=== PATIENT | female | born 1990 | race Caucasian/White ===

== ENCOUNTER 2018-02-21 20:40 | Emergency (ER) | payer MEDICAID ==
[2018-02-21 20:45] VITALS: BP 125/86
--- NOTE | 2018-02-21 20:55 | ER Report ---
History and Physical Time Seen By MD: 20:55 Hx. of Stated Complaint: SLIPPED ON ICE. FELL FORWARD, LANDED ON LEFT WRIST. NO OTHER COMPLAINTS/INJURIES HPI/ROS CHIEF COMPLAINT: wrist injury HISTORY OF PRESENT ILLNESS: This is a 28 year old female. She slipped on the ice and fell onto outstretched left hand. Swelling and pain, severe, worse with pressure or movement. Normal sensation. Allergies: Coded Allergies: amoxicillin (Verified Allergy, Severe, SHORTNESS OF BREATH, 02/21/18) Home Meds Active Scripts Hydrocodone Bit/Acetaminophen (HYDROCODON-ACETAMINOPHEN 5-325) 1 Each Tablet, 1 EACH PO Q4H PRN for PAIN, #12 TAB 0 Refills Prov:LJ GRAVES MD 02/21/18 Reviewed Nurses Notes: Yes Hx Substance Use Disorder: No Hx Alcohol Use: No Constitutional Vital Sign - Last 24 Hours 02/21/18 20:45 Temp 98.0 Pulse 72 Resp 24 B/P (MAP) 125/86 Pulse Ox 95 O2 Delivery Room Air Physical Exam General: Alert, no acute distress. Musculoskeletal: swelling. Pain with palpation over wrist. No pain at elbow. No pain in hand. Can move fingers, but causes pain in wrist. Skin: No laceration or breakdown. Cardiovascular: Normal capillary refill and radial pulses. Neuro: normal sensation Medical Decision Making EKG/Imaging Imaging Examination: WRIST LEFT MIN 3 VIEW Comparison: None. History: Fall on outstretched hand. Left wrist pain and swelling. Findings: Left radius distal diametaphysis significantly comminuted and displaced fracture. Best seen on the lateral projection there is marked disruption of the radial articular surface with impaction of the proximal carpal row into the fracture. Additionally, a minimally displaced fracture through the base of the ulnar styloid is present. Intercarpal alignment is maintained. Diffuse soft tissue swelling. IMPRESSION: 1. Left radius distal diametaphysis significantly comminuted and displaced intra-articular fracture. 2. Left ulnar styloid minimally displaced fracture. Report Dictated By: Yordy Edwards MD at 02/21/2018 9:10 PM S/p reduction films do not show much change, awaiting radiology evaluation. ED Course/Re-evaluation ED Course Patient had x-rays showing the fracture. Hematoma block and Lortab provided and reduction attempted. Sugartong splint applied. Not much improvement in positioning of fracture. She will call orthopedic surgery on Wednesday. Re-evaluation Procedure: Hematoma block left distal radius fracture A hematoma block was performed to help with pain with reduction of Colles' fracture. The block was performed with lidocaine without epinephrine and Сергей gabriella without epinephrine. The patient experienced almost complete pain relief. The procedure was performed by myself. Procedure: Sugar tong left forearm half cast placement. A half-cast/splint as noted above was applied. After application of the half- cast, I returned and re-examined the patient. The half-cast was adequately immobilizing the joint and distally the patient's circulation and sensation was intact. This was applied by myself. Decision to Disposition Date: Feb 21, 2018 Decision to Disposition Time: 22:12 Depart Departure Latest Vital Signs Vital Signs Date Time Temp Pulse Resp B/P (MAP) Pulse Ox O2 Delivery O2 Flow Rate FiO2 02/21/18 20:45 98.0 72 24 125/86 95 Room Air Impression: Primary Impression: Colles' fracture of left radius Additional Impression: Fracture of ulnar styloid Condition: Improved Disposition: HOME OR SELF-CARE New Scripts Hydrocodone Bit/Acetaminophen (HYDROCODON-ACETAMINOPHEN 5-325) 1 Each Tablet 1 EACH PO Q4H PRN for PAIN, #12 TAB 0 Refills Prov: LJ GRAVES MD 02/21/18 Patient Instructions: Wrist Fracture in Adults (ED) Additional Instructions: Call your orthopedic surgeon in [place] this Wednesday to arrange a follow-up evaluation for your wrist fracture. Ibuprofen 200mg over the counter tablets, take 4 tablets three times a day with food. Lortab 5/325, one every 4 hours as needed for pain. Apply ice 20 minutes every 1-2 hours while awake. Rest the injured area, keep it elevated while at rest. Keep the splint on until you see orthopedic surgery. Problem Qualifiers Primary Impression: Colles' fracture of left radius Encounter type: initial encounter Fracture type: closed Qualified Codes: S52.532A - Colles' fracture of left radius, initial encounter for closed fracture Additional Impression: Fracture of ulnar styloid Encounter type: initial encounter Fracture type: closed Fracture alignment: nondisplaced Laterality: left Qualified Codes: S52.615A - Nondisplaced fracture of left ulna styloid process, initial encounter for closed fracture LJ GRAVES MD Feb 21, 2018 20:55
--- NOTE | 2018-02-21 21:16 | RADIOLOGY IMAGING REPORT ---
FACILITY: [facility] PATIENT NAME: Rivka Milan : 1990 MR: [id number] V: [id number] EXAM DATE: ORDERING PHYSICIAN: LJ GRAVES TECHNOLOGIST: Location: [facility] [place] Patient: Rivka Milan : 1990 Visit/Account:[id number] Date of Sevice: 02/21/2018 Examination: WRIST LEFT MIN 3 VIEW Comparison: None. History: Fall on outstretched hand. Left wrist pain and swelling. Findings: Left radius distal diametaphysis significantly comminuted and displaced fracture. Best see n on the lateral projection there is marked disruption of the radial articular surface with impaction of the proximal carpal row into the fracture. Additionally, a minimally displaced fracture through the base of the ulnar styloid is present. Intercarpal alignment is maintained. Diffuse soft tissue swelling. IMPRESSION: 1. Left radius distal diametaphysis significantly comminuted and displaced intra-articular fracture. 2. Left ulnar styloid minimally displaced fracture. Report Dictated By: Yordy Edwards MD at 02/21/2018 9:10 PM Report E-Signed By: Yordy Edwards MD at 02/21/2018 9:12 PM WSN:[email or web address]
[2018-02-21] MEDS ORDERED: APAP/HYDROCODONE 325/5 TAB PO ONE (21:30)
[2018-02-21] MEDS ORDERED: LOR5/325 PO (22:14)
[2018-02-21] MEDS ORDERED: ACET/HYDROC 5/325MG TH ER ONLY 2 TAB/BOTTLE PO ONE (22:15)
--- NOTE | 2018-02-21 22:29 | RADIOLOGY IMAGING REPORT ---
[place] [facility] [place]IENT NAME: Rivka Milan : 1990 MR: [id number] V: [id number] EXAM DATE: ORDERING PHYSICIAN: LJ GRAVES TECHNOLOGIST: Location: [facility] Patient: Rivka Milan : 1990 Visit/Account:[id number] Date of Sevice: 02/21/2018 EXAMINATION: Left wrist 3 views HISTORY: Post reduction COMPARISON: Prior study of earlier today. FINDINGS: Comminuted intra-articular fracture of the distal left radius. There is improved anatomic alignment f ollowing closed reduction with some mild residual impaction of fracture fragments. Nondisplaced fracture of the ulnar styloid. No other new osseous findings about the left wrist. Surrounding soft tissue swelling with new overlying splint material. IMPRESSION: Comminuted intra-articular fracture of the distal left radius, with improved anatomic al ignment following closed reduction. Report Dictated By: Matt Curry MD at 02/21/2018 10:22 PM Report E-Signed By: Matt Curry MD at 02/21/2018 10:25 PM WSN:[id number]
== END 2018-02-21 22:28 | disposition home or self-care (01) ==
LOC: ER 20:56
DX: S52.532A Colles' fracture of left radius, initial encounter for closed fracture (principal); S52.615A Nondisplaced fracture of left ulna styloid process, initial encounter for closed fracture; W00.0XXA Fall on same level due to ice and snow, initial encounter
CPT/HCPCS: 25605; 73110; 99284; A4565

== ENCOUNTER 2018-03-01 00:17 | Day surgery (SDC) | payer MEDICAID ==
[~2018-03-01] VITALS: Ht 162.6 cm; Wt 105.7 kg
[~2018-03-01 00:17] MED LIST: LOR5/325 PO
[2018-03-01] MEDS ORDERED: CLINDAMYCIN(*) 900 MG/NS 50 ML 50 ML IVPB ONE (07:00)
[2018-03-01] MEDS ORDERED: LIDOCAINE/SOD BICARB 8.4% SYR ID ONE (07:00)
[2018-03-01] MEDS ORDERED: CELECOXIB 200 MG CAP PO ONE (07:00)
[2018-03-01] MEDS ORDERED: MIDAZOLAM 2 MG/2 ML VIAL IVP PRN (07:00)
[2018-03-01] MEDS ORDERED: FAMOTIDINE 20 MG TAB PO ONE (07:00)
[2018-03-01] MEDS ORDERED: NORMOSOL R SOLN(*) 1000 ML BAG 1,000 ML IV PRN (07:00)
[2018-03-01] MEDS ORDERED: fentaNYL CITR 250 MCG/5 ML AMP ONE (07:47)
[2018-03-01] MEDS ORDERED: DEXAMETHASONE SOD PHOS 10MG/ML ONE (07:48)
[2018-03-01] MEDS ORDERED: LIDOCAINE MPF 1% 5 ML VIAL ONE (07:48)
[2018-03-01] MEDS ORDERED: PROPOFOL EMUL(*) 10MG/ML 20 ML 20 ML ONE (07:48)
[2018-03-01] MEDS ORDERED: ONDANSETRON 4 MG/2 ML VIAL ONE (07:48)
[2018-03-01] MEDS ORDERED: KETAMINE HCL 200 MG/20 ML MDV ONE (07:50)
[2018-03-01 08:37] VITALS: BP 105/60
[2018-03-01] MEDS ORDERED: ROPIVACAINE 0.2% 20 ML VIAL ONE (09:10)
[2018-03-01] MEDS ORDERED: LIDOCAINE 2% JELLY 5 ML TUBE ONE (09:28)
[2018-03-01] MEDS ORDERED: HALOPERIDOL LACT 5 MG/ML VIAL IM ONE (10:00)
[2018-03-01] MEDS ORDERED: KETOROLAC 30 MG/ML VIAL ONE (10:52)
--- NOTE | 2018-03-01 11:52 | OPERATIVE REPORT 1 ---
EVENT DATE: March 01, 2018 SURGEON: Fuad Morton MD ANESTHESIOLOGIST: Heraclio Renee MD ANESTHESIA: General LMA. TIN CONTAINER STRAIGHTENER: Praveen Carlos PA-C PREOPERATIVE DIAGNOSIS Left comminuted intra-articular greater than three part distal radius fracture. POSTOPERATIVE DIAGNOSIS Left comminuted intra-articular greater than three part distal radius fracture. PROCEDURE PERFORMED Open reduction and internal fixation of a left distal radius fracture, which is intra-articular greater than three parts and down into the shaft. FINDINGS The patient has displaced distal radius fracture. It was amenable for fixation with a volar plate with a longer volar plate out of the skeletal dynamic set. ESTIMATED BLOOD LOSS Minimal. DRAINS None. COMPLICATIONS None. IMPLANTS USED [employer] left four-hole shaft standard plate with three high compression locking screws, three standard distal locking pegs and four shaft screws and nonlocking screws. SPECIMENS None. TOURNIQUET TIME 62 minutes. INDICATIONS AND HISTORY This patient is a 28-year-old female who presented to my clinic for evaluation of a left wrist fracture which she had fallen on [employer] when she was wrestling with her boyfriend. She had a completely displaced intra-articular fracture so we talked to her about the implications of this. She wanted to go ahead with open reduction and internal fixation of the left distal radius today, March 01, 2018, and the risks and benefits were discussed with her and informed consent was obtained. We talked about how she may not get complete relief associated with this and she may have problems associated with the comminuted intra-articular portion of the fracture and said she understood that. DESCRIPTION OF PROCEDURE The patient was brought into the operating room. She and the procedure were both verified. She was placed supine on the operating table and induced intubated by anesthesia. The left upper extremity was then prepped and draped in the usual fashion. A time-out was observed verifying the correct patient and procedure. The tourniquet was inflated and a small volar Catrachito incision was made over the volar aspect of the forearm, making sure to avoid the tattoo proximally and then we went through the skin and subcutaneous tissue until I got down to the flexor carpi radialis. Once I was on the flexor carpi radialis, I was able to retract that to the radial side and then go down through the pronator muscle mass in order to get down to the distal radius. Once I identified the distal radius, I was able to get down to this area and then clean off the bone distally and proximally in order to visualize the fracture site itself. I was then able to reduce the fracture and pin the radial styloid in place in order to keep it out to length. We were then able to hold all the volar pieces together and then do a volar compression in order to hold it together. I then utilized a four hole standard plate out of the skeletal Dynamic set in order to then press that up against the comminuted portions. Once I had good compression in all directions, I then pinned that plate in place and then verified on C-arm images that everything looked well reduced except for the radial styloid. I then put two screws in the distal portion of the plate once I verified on C-arm images everything was in good position in order to do high compression locking to the distal radius in order to hold these pieces in place. I then put one shaft screw and then took further x-rays to verify that everything was in good position. I then put in one more high compression locking screw in the distal radius and then two screws into the radial styloid. I was able to hand reduce the radial styloid and then put the two screws and hold it in place with two locking screws on this side and then put one more locking screw proximally on the ulnar side. This then completed the distal fixation. I then put in three more shaft screws into the proximal portion through the shaft, two of them bicortically and one unicortically in order to try and ease the tension in the area where the fracture went to. This was then followed by irrigation with a copious amount of saline. Final C-arm images were then taken, verifying that everything was in good position and that the fracture was well reduced. This was done followed by irrigation again and then closure of the sheath over the FCR with a 3-0 Vicryl and then followed by 3-0 Vicryl in the subcutaneous tissue and subcuticular 4-0 running Monocryl with the ends on the outside through the skin in order to try and preserve the tattoo. This was then followed by Steri-strips, gauze, 4x4's and a soft dressing followed by a volar and dorsal splint. The patient was awakened, extubated and transferred to PACU in stable condition after the tourniquet was let down after 62 minutes. MTDD
[2018-03-01] MEDS ORDERED: HYDR-653 PO (11:56)
[2018-03-01] MEDS ORDERED: fentaNYL CITR 100 MCG/2 ML AMP ONE (12:04)
[2018-03-01] MEDS ORDERED: APAP/HYDROCODONE 325/5 TAB ONE (12:37)
[2018-03-01 12:45] VITALS: BP 133/96
[2018-03-01 12:47] VITALS: BP 123/89
[2018-03-01] MEDS ORDERED: SUGAMMADEX SOD 200 MG/2 ML SDV ONE (13:53)
== END 2018-03-01 12:45 | disposition home or self-care (01) ==
LOC: OR 00:17
PROVIDERS: ATTEND Orthopaedic Surgery
DX: S52.572A Other intraarticular fracture of lower end of left radius, initial encounter for closed fracture (principal); W18.39XA Other fall on same level, initial encounter; Y93.89 Activity, other specified
CPT/HCPCS: 25609; J1100; J1630; J1885; J2001; J2250; J2405; J2704; J2795; J3010; J3490